=== PATIENT | female | born 1975 | race Caucasian/White ===

== ENCOUNTER → 2019-07-21 | Outpatient (CLI) | payer BC ==
--- NOTE | 2019-07-21 10:25 | US ---
EXAMINATION TYPE: US venous doppler duplex UE RT DATE OF EXAM: 07/21/2019 COMPARISON: None CLINICAL HISTORY: I82.621,M79.621, R22.31. Patient states she was cleaning and felt tightness in arm over the weekend with swelling. No swelling today. No redness. No hx DVT or on blood thinners. SIDE PERFORMED: Right Grayscale, color doppler, spectral doppler imaging performed of the deep veins of the upper extremiti es. There is normal flow, compressibility and vascular waveforms. Right Arm: Negative for DVT IMPRESSION: No sonographic evidence of deep venous thrombosis within the right upper extremity.
== END | disposition home or self-care (01) ==
LOC: RADUSWWP 09:49
PROVIDERS: ATTEND Internal Medicine
DX: M79.621 Pain in right upper arm (principal); R22.31 Localized swelling, mass and lump, right upper limb